=== PATIENT | male | born 1975 | race American Indian/Alaskan Native ===

== ENCOUNTER 2018-04-14 09:31 | Emergency (ER) | payer MEDICAID, OTHER ==
[2018-04-14] MEDS ORDERED: BICILLIN L-A IM ONE (09:53)
[2018-04-14] MEDS ORDERED: NORCO 7.5/325 PO ONE (09:53)
--- NOTE | 2018-04-14 09:54 | Emergency Department Report ---
ED ENT HPI - General Chief complaint: Dental/Oral Stated complaint: SWOLLEN FACE/TOOTHACHE Time Seen by Provider: 04/14/18 09:51 Source: patient Mode of arrival: Ambulatory Limitations: No Limitations - History of Present Illness MD complaint: tooth pain -: Gradual, days(s) Severity: moderate Improves with: none Worsens with: eating Context- Dental: history of dental caries, poor dental care - Related Data Previous Rx's Medication Instructions Recorded Last Taken Type Amoxicillin 500 mg PO BID #20 capsule 04/14/18 Unknown Rx Chlorhexidine Mouthwash [Peridex] 15 ml MM BID #1 bottle 04/14/18 Unknown Rx traMADol [Ultram] 50 mg PO Q6HR PRN #10 tablet 04/14/18 Unknown Rx Allergies Allergy/AdvReac Type Severity Reaction Status Date / Time No Known Allergies Allergy Unverified 04/19/13 12:12 ED Dental HPI - General Chief complaint: Dental/Oral Stated complaint: SWOLLEN FACE/TOOTHACHE Time Seen by Provider: 04/14/18 09:51 Source: patient Mode of arrival: Ambulatory Limitations: No Limitations - Related Data Previous Rx's Medication Instructions Recorded Last Taken Type Amoxicillin 500 mg PO BID #20 capsule 04/14/18 Unknown Rx Chlorhexidine Mouthwash [Peridex] 15 ml MM BID #1 bottle 04/14/18 Unknown Rx traMADol [Ultram] 50 mg PO Q6HR PRN #10 tablet 04/14/18 Unknown Rx Allergies Allergy/AdvReac Type Severity Reaction Status Date / Time No Known Allergies Allergy Unverified 04/19/13 12:12 ED Review of Systems ROS: Stated complaint: SWOLLEN FACE/TOOTHACHE Other details as noted in HPI Comment: All other systems reviewed and negative Constitutional: denies: chills, fever Eyes: denies: eye pain ENT: dental pain. denies: ear pain, throat pain, hearing loss, epistaxis Respiratory: denies: see HPI Cardiovascular: denies: chest pain Endocrine: denies: see HPI Gastrointestinal: denies: nausea Genitourinary: denies: urgency Musculoskeletal: denies: back pain Neurological: denies: as per HPI ED Past Medical Hx - Past Medical History Previous Medical History?: No - Surgical History Past Surgical History?: No - Social History Smoking Status: Current Every Day Smoker Substance Use Type: Alcohol - Medications Home Medications: Home Medications Medication Instructions Recorded Confirmed Last Taken Type Amoxicillin 500 mg PO BID #20 capsule 04/14/18 Unknown Rx Chlorhexidine Mouthwash [Peridex] 15 ml MM BID #1 bottle 04/14/18 Unknown Rx traMADol [Ultram] 50 mg PO Q6HR PRN #10 tablet 04/14/18 Unknown Rx ED Physical Exam - General Limitations: No Limitations General appearance: alert - Head Head exam: Present: atraumatic - Eye Eye exam: Present: normal appearance, PERRL Pupils: Present: normal accommodation - ENT ENT exam: Present: normal exam, mucous membranes moist - Expanded ENT Exam Expanded Mouth exam: Present: tongue normal. Absent: drooling, trismus, muffled voice, tongue elevation Teeth exam: Present: dental caries 1 - Dental Tenderness, Other (mandibular abscess and gingivits. abscess has broke. no ludwigs. controlling secretions and taking po) Throat exam: Positive: normal inspection - Neck Neck exam: Present: normal inspection, full ROM. Absent: tenderness, meningismus, lymphadenopathy, thyromegaly - Respiratory Respiratory exam: Present: normal lung sounds bilaterally - Cardiovascular Cardiovascular Exam: Present: regular rate - GI/Abdominal GI/Abdominal exam: Present: soft ED Course Vital Signs 04/14/18 09:38 Temperature 97.9 F Pulse Rate 88 Respiratory 20 Rate Blood Pressure 158/84 O2 Sat by Pulse 99 Oximetry ED Medical Decision Making - Medical Decision Making has DMD appointment on - Differential Diagnosis dental disease Critical care attestation.: If time is entered above; I have spent that time in minutes in the direct care of this critically ill patient, excluding procedure time. ED Disposition Clinical Impression: Dental caries, Gingivitis Disposition: TO HOME OR SELFCARE Is pt being admited?: No Does the pt Need Aspirin: No Condition: Stable Instructions: Dental Caries (ED) Additional Instructions: dentist tatyana meds as ordered today motrin/tylenol for mild pain ultram for severe pain mouth was as instructed hydrate well with water Prescriptions: Amoxicillin 500 mg PO BID #20 capsule Chlorhexidine Mouthwash [Peridex] 15 ml MM BID #1 bottle traMADol [Ultram] 50 mg PO Q6HR PRN #10 tablet PRN Reason: Pain Referrals: [facility] [Outside] - 3-5 Days [facility] [Outside] - 3-5 Days Time of Disposition: 09:55
[2018-04-14] MEDS ORDERED: PERIDEX MM ONE (10:30)
[2018-04-14 10:39] VITALS: BP 136/84
== END 2018-04-14 10:38 | disposition home or self-care (01) ==
LOC: ED 09:31
DX: K02.9 Dental caries, unspecified (principal); K05.10 Chronic gingivitis, plaque induced; F17.200 Nicotine dependence, unspecified, uncomplicated
CPT/HCPCS: 96372; 99282; J0561

== ENCOUNTER 2019-12-08 06:43 | Emergency (ER) | payer OTHER ==
[2019-12-08 07:18] LABS: Basophils % (Auto) 0.4 % (0.0-1.8); Hematocrit 45.5 % (35.5-45.6); Hemoglobin 15.6 gm/dl (11.8-15.2); Lymphocytes # (Auto) 1.3 K/mm3 (1.2-5.4); Lymphocytes % (Auto) 10.9 % (13.4-35.0); Mean Corpuscular HGB Conc 34 % (32-34); Mean Corpuscular Volume 92 fl (84-94); Monocytes # (Auto) 0.5 K/mm3 (0.0-0.8); Monocytes % (Auto) 3.9 % (0.0-7.3); Platelet Count 296 K/mm3 (140-440); Red Blood Count 4.96 M/mm3 (3.65-5.03); Red Cell Distribution Width 13.2 % (13.2-15.2)
[2019-12-08 07:42] LABS: Alanine Aminotransferase 19 units/L (7-56); Albumin 5.1 g/dL (3.9-5); BUN/Creatinine Ratio 11; Blood Urea Nitrogen 9 mg/dL (9-20); Calcium 10.2 mg/dL (8.4-10.2); Hemolysis Index 5
[2019-12-08] MEDS ORDERED: MORPHINE 4 MG/1 ML INJ IV ONE (09:21)
[2019-12-08] MEDS ORDERED: SODIUM CHLORIDE 0.9% 1000 ML 1,000 ML IV ONE ×2 (09:21→10:46)
[2019-12-08] MEDS ORDERED: ONDANSETRON 4 MG/2 ML INJ IV ONE (09:21)
[2019-12-08] MEDS ORDERED: PANTOPRAZOLE 40 MG INJ IV ONE (09:21)
--- NOTE | 2019-12-08 09:26 | Emergency Department Report ---
ED Abdominal Pain HPI - General Chief Complaint: Abdominal Pain Stated Complaint: VOMITING Time Seen by Provider: 12/08/19 09:16 Source: patient, EMS Mode of arrival: Ambulatory Limitations: No Limitations - History of Present Illness Initial Comments: 44-year male with no significant past medical or surgical history presents to the hospital complaining of abdominal pain nausea and vomiting since 5 PM yesterday. Patient did have diarrhea earlier that day that has since resolved. He complains of some light pink vomitus today and turned bloody and now most recently green in color. He denies melena or hematochezia. He complains of a constant achy 8/10 lower abdominal pain that is worse with palpation and movement. No alleviating factors reported. Patient admits to drinking beer daily but denies a history of alcohol withdrawal tremors or seizures. Last drink was 2 days ago. Patient denies urinary symptoms -[id number] IVAN - Related Data Previous Rx's Medication Instructions Recorded Last Taken Type Amoxicillin 500 mg PO BID #20 capsule 04/14/18 Unknown Rx Chlorhexidine Mouthwash [Peridex] 15 ml MM BID #1 bottle 04/14/18 Unknown Rx traMADoL [Ultram] 50 mg PO Q6HR PRN #10 tablet 04/14/18 Unknown Rx Famotidine [Pepcid] 20 mg PO BID #30 tablet 12/08/19 Unknown Rx HYDROcodone/APAP 5-325 [[place] 1 each PO Q6HR PRN #14 tablet 12/08/19 Unknown Rx 5/325] Ondansetron [Zofran Odt] 4 mg PO Q8HR PRN #20 tab.rapdis 12/08/19 Unknown Rx Allergies Allergy/AdvReac Type Severity Reaction Status Date / Time No Known Allergies Allergy Unverified 04/19/13 12:12 ED Review of Systems ROS: Stated complaint: VOMITING Other details as noted in HPI Comment: All other systems reviewed and negative ED Past Medical Hx - Past Medical History Previous Medical History?: No - Surgical History Past Surgical History?: No - Social History Smoking Status: Current Every Day Smoker Substance Use Type: None - Medications Home Medications: Home Medications Medication Instructions Recorded Confirmed Last Taken Type Amoxicillin 500 mg PO BID #20 capsule 04/14/18 Unknown Rx Chlorhexidine Mouthwash [Peridex] 15 ml MM BID #1 bottle 04/14/18 Unknown Rx traMADoL [Ultram] 50 mg PO Q6HR PRN #10 tablet 04/14/18 Unknown Rx Famotidine [Pepcid] 20 mg PO BID #30 tablet 12/08/19 Unknown Rx HYDROcodone/APAP 5-325 [[place] 1 each PO Q6HR PRN #14 tablet 12/08/19 Unknown Rx 5/325] Ondansetron [Zofran Odt] 4 mg PO Q8HR PRN #20 tab.rapdis 12/08/19 Unknown Rx ED Physical Exam - General Limitations: No Limitations - Other Other exam information: General: Mild distress secondary to pain Head: Atraumatic Eyes: normal appearance ENT: Moist mucous membranes Neck: Normal appearance, no midline tenderness Chest: Clear to auscultation bilaterally CV: Regular rate and rhythm Abdomen: Soft, normal bowel sounds, diffuse abdominal tenderness greatest in the lower abdomen, nondistended, no rebound or guarding Back: Normal inspection Extremity: Normal inspection, full range of motion Neuro: Alert O x 3, no facial asymmetry, speech clear, no gross motor sensory deficit Psych: Appropriate behavior Skin: No rash ED Course Vital Signs 12/08/19 12/08/19 06:55 10:00 Temperature 97.4 F L Pulse Rate 69 67 Respiratory 22 13 Rate Blood Pressure 157/94 181/113 O2 Sat by Pulse 88 98 Oximetry ED Medical Decision Making - Lab Data Result diagrams: 12/08/19 07:06 12/08/19 07:06 - Radiology Data Radiology results: report reviewed CT abdomen pelvis w con INDICATION / CLINICAL INFORMATION: MAIN. TECHNIQUE: All CT scans at this location are performed using CT dose reduction for ALARA by means of automated exposure control. COMPARISON: None available. FINDINGS: No free fluid is seen in the abdomen. The liver, spleen, kidneys, pancreas and adrenal glands are normal. Mild atherosclerotic changes present without evidence of an aneurysm. No enlarged mesenteric or retroperitoneal lymph nodes are seen. In the pelvis, no free fluid is seen. No enlarged lymph nodes are identified. Prostate calcification is present. Mild changes of diverticulosis are present. The bladder and the appendix are normal. A vague sclerotic lesion is seen in the right iliac bone and is probably of little significance IMPRESSION: 1. Vague sclerotic lesion in the right iliac bone probably of little clinical significance 2. Mild atherosclerotic change without evidence of an aneurysm 3. Prostate calcification 4. Mild changes of diverticulosis - Medical Decision Making Patient demonstrated with ED treatment of morphine, Zofran, Protonix, and normal saline. CT abdomen pelvis without acute surgical infectious findings. Labs unremarkable. Patient counseled on importance of decreasing alcohol intake. Will be discharged with medications for symptomatic treatment of his current symptoms. Vomiting but likely secondary to Zunilda-Sutton tear and has not been persistent. Patient has a normal H&H Critical Care Time: No Critical care attestation.: If time is entered above; I have spent that time in minutes in the direct care of this critically ill patient, excluding procedure time. ED Disposition Clinical Impression: Nausea & vomiting, Abdominal pain, Vomiting, Dehydration, Proteinuria Disposition: - TO HOME OR SELFCARE Is pt being admited?: No Does the pt Need Aspirin: No Condition: Stable Instructions: Gastrointestinal Bleeding (ED), Acute Nausea and Vomiting (ED), Abdominal Pain (ED) Additional Instructions: Take the medication as prescribed. Follow-up with your doctor or doctor/clinic provided. Return if symptoms worsen as indicated by your discharge instructions . Your urine shows a significant amount of protein. Your kidney function is normal. It is important that you follow-up with a primary care doctor and agriculture engineer (kidney specialist) for repeat evaluation. Prescriptions: HYDROcodone/APAP 5-325 [[place] 5/325] 1 each PO Q6HR PRN #14 tablet PRN Reason: Pain Famotidine [Pepcid] 20 mg PO BID #30 tablet Ondansetron [Zofran Odt] 4 mg PO Q8HR PRN #20 tab.rapdis PRN Reason: Nausea And Vomiting Referrals: MARK URBAN MD [Staff Physician] - 3-5 Days (Absorption Operator) MARCELO VÁSQUEZ MD [Staff Physician] - 3-5 Days (Primary care doctor) [place] BOZENA CHI MD [Primary Care Provider] - 3-5 Days (Primary care clinic) Time of Disposition: 12:55
[2019-12-08] MEDS ORDERED: MORPHINE 2 MG/1 ML INJ ONE (09:36)
--- NOTE | 2019-12-08 11:56 | Cat Scan Report ---
CT abdomen pelvis w con INDICATION / CLINICAL INFORMATION: MAIN. TECHNIQUE: All CT scans at this location are performed using CT dose reduction for ALARA by means of automated e xposure control. COMPARISON: None available. FINDINGS: No free fluid is seen in the abdomen. The liver, spleen, kidneys, pancreas and adrenal glands are nor mal. Mild atherosclerotic changes present without evidence of an aneurysm. No enlarged mesenteric or retroperitoneal lymph nodes are seen. In the pelvis, no free fluid is seen. No enlarged lymph nodes are identified. Prostate calcification is present. Mild changes of diverticulosis are present. The bladder and the appendix are normal. A va og sclerotic lesion is seen in the right iliac bone and is probably of little significance IMPRESSION: 1. Vague sclerotic lesion in the right iliac bone probably of little clinical significance 2. Mild atherosclerotic change without evidence of an aneurysm 3. Prostate calcification 4. Mild changes of diverticulosis Signer Name: Mina Knapp MD FACR Signed: 12/08/2019 11:52 AM Workstation Name: [id number]
[2019-12-08 12:42] LABS: Bacteria,Urine 1+ /HPF (Negative); Bilirubin,Urine NEG (Negative); Blood,Urine SM (Negative); Color,Urine Yellow (Yellow); Mucus,Urine 3+ /HPF; Urobilinogen,Urine < 2.0 mg/dL (<2.0)
[2019-12-08 12:49] LABS: Protein,Urine >2000 mg dL mg/dL (Negative)
[2019-12-08 13:48] VITALS: BP 150/90
== END 2019-12-08 14:53 | disposition home or self-care (01) ==
LOC: ED 06:43
DX: E86.0 Dehydration (principal); R80.8 Other proteinuria; F17.200 Nicotine dependence, unspecified, uncomplicated; Z79.899 Other long term (current) drug therapy
CPT/HCPCS: 36415; 74177; 80053; 81001; 83690; 85025; 96361; 96374; 96375; 99284; C9113; J2270; J2405; J7030; Q9967

== ENCOUNTER 2020-04-08 15:21 | Emergency (ER) | payer OTHER ==
[2020-04-08 15:54] VITALS: BP 162/102
--- NOTE | 2020-04-08 18:07 | Event Note ---
ED Screening Note Date of service: 04/08/20 Time: 18:05 ED Screening Note: 85-year-old -Slov[place] male presents to the emergency room for abdominal pain nausea and vomiting since 11 AM. Patient reports he last vomited 230. He admits to smoking cigarettes and drinking alcohol. Was told he had hypertension but never followed up. Blood pressure today is 162/102. Denies taking any medications on a daily basis has no known drug allergies. No fever no chills. This initial assessment/diagnostic orders/clinical plan/treatment(s) is/are subject to change based on patients health status, clinical progression and re- assessment by fellow clinical providers in the ED. Further treatment and workup at subsequent clinical providers discretion. Patient/guardian urged not to elope from the ED as their condition may be serious if not clinically assessed and managed. Initial orders include:
[2020-04-08 19:23] LABS: Alanine Aminotransferase 19 units/L (7-56); Albumin 4.6 g/dL (3.9-5); BUN/Creatinine Ratio 16; Blood Urea Nitrogen 14 mg/dL (9-20); Calcium 9.3 mg/dL (8.4-10.2); Hemolysis Index 18
[2020-04-08 19:29] LABS: Basophils % (Auto) 0.4 % (0.0-1.8); Eosinophils % (Auto) 0.2 % (0.0-4.3); Hematocrit 43.8 % (35.5-45.6); Lymphocytes # (Auto) 2.1 K/mm3 (1.2-5.4); Lymphocytes % (Auto) 19.2 % (13.4-35.0); Mean Corpuscular HGB Conc 34 % (32-34); Mean Corpuscular Volume 95 fl (84-94); Monocytes # (Auto) 0.8 K/mm3 (0.0-0.8); Monocytes % (Auto) 7.7 % (0.0-7.3); Platelet Count 293 K/mm3 (140-440); Red Blood Count 4.61 M/mm3 (3.65-5.03); Red Cell Distribution Width 13.8 % (13.2-15.2)
== END 2020-04-09 01:00 | disposition left against medical advice (07) ==
LOC: ED 15:21
DX: R11.2 Nausea with vomiting, unspecified (principal); Z53.21 Procedure and treatment not carried out due to patient leaving prior to being seen by health care provider
CPT/HCPCS: 36415; 80053; 83690; 85025

== ENCOUNTER 2021-06-02 17:46 | Emergency (ER) | payer OTHER ==
[2021-06-02] MEDS ORDERED: FAMOTIDINE 20 MG/2 ML INJ IV ONE (23:02)
[2021-06-02] MEDS ORDERED: ONDANSETRON 4 MG/2 ML INJ IV ONE (23:02)
[2021-06-02] MEDS ORDERED: KETOROLAC 30 MG/1 ML INJ IV ONE (23:02)
[2021-06-02] MEDS ORDERED: SODIUM CHLORIDE 0.9% 1000 ML 1,000 ML IV ONE (23:02)
[2021-06-02 23:29] LABS: Basophils % (Auto) 0.3 % (0.0-1.8); Hematocrit 47.2 % (35.5-45.6); Hemoglobin 16.4 gm/dl (11.8-15.2); Lymphocytes # (Auto) 2.7 K/mm3 (1.2-5.4); Lymphocytes % (Auto) 20.2 % (13.4-35.0); Mean Corpuscular HGB Conc 35 % (32-34); Mean Corpuscular Volume 95 fl (84-94); Monocytes # (Auto) 1.6 K/mm3 (0.0-0.8); Monocytes % (Auto) 12.1 % (0.0-7.3); Platelet Count 310 K/mm3 (140-440); Red Blood Count 4.98 M/mm3 (3.65-5.03)
[2021-06-02 23:51] LABS: Alanine Aminotransferase 26 units/L (7-56); Albumin 4.8 g/dL (3.9-5); BUN/Creatinine Ratio 20; Blood Urea Nitrogen 20 mg/dL (9-20); Calcium 9.8 mg/dL (8.4-10.2); Hemolysis Index 11
[2021-06-02] MEDS ORDERED: POTASSIUM CHLORIDE ER 20 MEQ TAB PO ONE (23:55)
--- NOTE | 2021-06-03 | Emergency Department Report ---
ED N/V/D HPI - General Chief complaint: Nausea/Vomiting/Diarrhea Stated complaint: SEVERE STOMACH PAIN/VOMITING Source: patient Mode of arrival: Ambulatory Limitations: No Limitations - History of Present Illness Initial comments: Patient is a 46-year-old -[place] male with a history of chronic alcohol abuse who presents to the ED with complaint of acute onset persistent intermittent nausea and vomiting for the last 3 days after drinking alcohol heavily 4 days ago. Patient states that patient states that his symptoms have been persistent and especially worse in the last 24 hours such that he has had multiple vomiting episodes. Patient also complains of mild epigastric pain. Patient denies diarrhea, fever, chills, cough, sore throat, chest pain or shortness of breath, dysuria, urinary frequency and urgency, headache, dizziness, syncope, change in vision or testicular pain. MD complaint: nausea, vomiting -: Sudden, days(s) (3) Description of Vomiting: food contents, watery, bilious Description of Diarrhea: other (No diarrhea) Associated Abdominal Pain: Yes (Mild epigastric pain) Location: epigastric Radiation: none Severity: mild Pain Scale: 2 Quality: aching, dull Consistency: intermittent Improves with: none Worsens with: eating, vomiting Context: possible food poisoning, alcohol abuse Associated Symptoms: denies other symptoms, loss of appetite, malaise, nausea/vomiting. denies: myalgias, chest pain, cough, diaphoresis, fever/chills, headaches, rash, dysuria, shortness of breath, syncope, weakness - Related Data Previous Rx's Medication Instructions Recorded Last Taken Type Amoxicillin 500 mg PO BID #20 capsule 04/14/18 Unknown Rx Chlorhexidine Mouthwash [Peridex] 15 ml MM BID #1 bottle 04/14/18 Unknown Rx traMADoL [Ultram] 50 mg PO Q6HR PRN #10 tablet 04/14/18 Unknown Rx Famotidine [Pepcid] 20 mg PO BID #30 tablet 12/08/19 Unknown Rx HYDROcodone/APAP 5-325 [[place] 1 each PO Q6HR PRN #14 tablet 12/08/19 Unknown Rx 5/325] Dicyclomine [Bentyl] 20 mg PO Q6H PRN #24 tablet 06/03/21 Unknown Rx Famotidine [Pepcid] 20 mg PO BID #60 tablet 06/03/21 Unknown Rx Ondansetron [Zofran ODT TAB] 4 mg PO Q8HR PRN #20 tab.rapdis 06/03/21 Unknown Rx Allergies Allergy/AdvReac Type Severity Reaction Status Date / Time No Known Allergies Allergy Verified 06/02/21 19:31 ED Review of Systems ROS: Stated complaint: SEVERE STOMACH PAIN/VOMITING Other details as noted in HPI Constitutional: denies: chills, fever Eyes: denies: eye pain, eye discharge, vision change ENT: denies: ear pain, throat pain Respiratory: denies: cough, shortness of breath, wheezing Cardiovascular: denies: chest pain, palpitations Endocrine: no symptoms reported Gastrointestinal: abdominal pain, nausea, vomiting. denies: diarrhea Genitourinary: denies: urgency, dysuria Musculoskeletal: denies: back pain, joint swelling, arthralgia Skin: denies: rash, lesions Neurological: denies: headache, weakness, paresthesias Psychiatric: denies: anxiety, depression Hematological/Lymphatic: denies: easy bleeding, easy bruising ED Past Medical Hx - Past Medical History Previous Medical History?: No - Surgical History Past Surgical History?: No - Social History Smoking Status: Current Some Day Smoker Substance Use Type: Marijuana - Medications Home Medications: Home Medications Medication Instructions Recorded Confirmed Last Taken Type Amoxicillin 500 mg PO BID #20 capsule 04/14/18 Unknown Rx Chlorhexidine Mouthwash [Peridex] 15 ml MM BID #1 bottle 04/14/18 Unknown Rx traMADoL [Ultram] 50 mg PO Q6HR PRN #10 tablet 04/14/18 Unknown Rx Famotidine [Pepcid] 20 mg PO BID #30 tablet 12/08/19 Unknown Rx HYDROcodone/APAP 5-325 [[place] 1 each PO Q6HR PRN #14 tablet 12/08/19 Unknown Rx 5/325] Dicyclomine [Bentyl] 20 mg PO Q6H PRN #24 tablet 06/03/21 Unknown Rx Famotidine [Pepcid] 20 mg PO BID #60 tablet 06/03/21 Unknown Rx Ondansetron [Zofran ODT TAB] 4 mg PO Q8HR PRN #20 tab.rapdis 06/03/21 Unknown Rx ED Physical Exam - General Limitations: No Limitations General appearance: alert, in no apparent distress - Head Head exam: Present: atraumatic, normocephalic, normal inspection - Eye Eye exam: Present: normal appearance, PERRL, EOMI Pupils: Present: normal accommodation - ENT ENT exam: Present: normal exam, normal orophraynx, mucous membranes moist, TM's normal bilaterally, normal external ear exam - Neck Neck exam: Present: normal inspection, full ROM - Respiratory Respiratory exam: Present: normal lung sounds bilaterally. Absent: respiratory distress, wheezes, rales, rhonchi, stridor, chest wall tenderness, accessory muscle use, decreased breath sounds - Cardiovascular Cardiovascular Exam: Present: regular rate, normal rhythm, normal heart sounds. Absent: systolic murmur, diastolic murmur, rubs, gallop - GI/Abdominal GI/Abdominal exam: Present: soft, normal bowel sounds. Absent: tenderness, guarding, rebound, rigid, hyperactive bowel sounds, hypoactive bowel sounds, organomegaly - Extremities Exam Extremities exam: Present: normal inspection, full ROM, normal capillary refill - Back Exam Back exam: Present: normal inspection, full ROM. Absent: tenderness, CVA tenderness (R), CVA tenderness (L), muscle spasm, paraspinal tenderness, vertebral tenderness - Neurological Exam Neurological exam: Present: alert, oriented X3, CN II-XII intact, normal gait, reflexes normal - Psychiatric Psychiatric exam: Present: normal affect, normal mood - Skin Skin exam: Present: warm, dry, intact, normal color. Absent: rash ED Course Vital Signs 06/02/21 06/02/21 19:28 23:22 Temperature 98.7 F Pulse Rate 97 H Respiratory 18 16 Rate Blood Pressure 148/103 [Left] O2 Sat by Pulse 100 Oximetry ED Medical Decision Making - Lab Data Result diagrams: 06/02/21 23:17 06/02/21 23:17 - Medical Decision Making This is a 46-year-old -Green[place]ic male with a history of chronic alcohol abuse who presents to the ED with complaint of acute onset persistent intermittent nausea and vomiting for the last 3 days after drinking alcohol heavily 4 days ago. Patient states that patient states that his symptoms have been persistent and especially worse in the last 24 hours such that he has had multiple vomiting episodes. Patient also complains of mild epigastric pain. In the ED, patient is alert and oriented x3 and is not in any distress. Patient was treated in the ED with antiemetics,, antacids, normal saline 1 L IV bolus x1 and Toradol. Lab test results were reviewed and showed mild hypokalemia of 3.5 mmol/L, mild hyponatremia 135 mmol/L, hyperglycemia of 138 mg/dL and leukocytosis of 13,300. On reevaluation, patient felt better, nausea and vomiting resolved and patient passed oral fluid challenge in the ED. Patient is hemodynamically stable, patient was discharged home on antiemetics and antacids as well as antispasmodic medications. Patient was advised to maintain a clear liquid diet for 12 to 24 hours, and subsequently to follow-up with his primary care physician in 5 to 7 days for reevaluation. Patient is advised return to the ED immediately if symptoms get worse. - Differential Diagnosis Gastroenteritis; dehydration; alcohol withdrawal; GERD Critical care attestation.: If time is entered above; I have spent that time in minutes in the direct care of this critically ill patient, excluding procedure time. ED Disposition Clinical Impression: Nausea and vomiting in adult patient, Viral gastroenteritis, Alcohol use disorder GERD (gastroesophageal reflux disease) Qualifiers: Esophagitis presence: esophagitis presence not specified Qualified Code(s): K21.9 - Gastro-esophageal reflux disease without esophagitis Disposition: HOME / SELF CARE / HOMELESS Is pt being admited?: No Does the pt Need Aspirin: No Condition: Stable Instructions: Viral Gastroenteritis, Adult, [id number], Nausea and Vomiting, Adult, [id number], Gastroesophageal Reflux Disease, Adult, [id number], Alcohol Use Disorder Additional Instructions: All lab test results were reviewed and are all nonactionable. Therefore maintain a clear liquid diet for 12 to 24 hours, drink plenty of fluids, abstain from alcohol abuse, follow-up with your primary care physician in 5 to 7 days for reevaluation or return to the ED immediately if symptoms get worse. Prescriptions: Dicyclomine [Bentyl] 20 mg PO Q6H PRN #24 tablet PRN Reason: Abdominal pain Famotidine [Pepcid] 20 mg PO BID #60 tablet Ondansetron [Zofran ODT TAB] 4 mg PO Q8HR PRN #20 tab.rapdis PRN Reason: Nausea And Vomiting Referrals: [facility] [Provider Group] - 7-10 days Time of Disposition: 00:02 Print Language: IRISH
[2021-06-03 00:46] VITALS: BP 169/103
== END 2021-06-03 00:46 | disposition home or self-care (01) ==
LOC: ED 17:46
DX: A08.4 Viral intestinal infection, unspecified (principal); K21.9 Gastro-esophageal reflux disease without esophagitis; R11.2 Nausea with vomiting, unspecified; F10.10 Alcohol abuse, uncomplicated; F17.200 Nicotine dependence, unspecified, uncomplicated
CPT/HCPCS: 36415; 80053; 83690; 85025; 96361; 96374; 96375; 99283; J1885; J2405; J3490; J7030; Q0162